=== PATIENT | female | born 1990 | race Caucasian/White ===

== ENCOUNTER 2022-05-28 07:37 | Inpatient (IN) ==
[2022-05-28] MEDS ORDERED: LIDOCAINE 1% LOCAL 20 ML VIAL INFIL PRN (08:21)
[2022-05-28] MEDS ORDERED: OXYTOCIN 30 UNITS/500 ML BAG IV PRN (08:21)
[2022-05-28] MEDS ORDERED: DINOPROSTONE 10 MG INSERT PV ONE (08:30)
--- NOTE | 2022-05-28 08:48 | History & Physical Report ---
Date of Service May 28, 2022 Assessment & Plan (1) Post-dates : Plan: 32-year-old G1, P0 at 40 weeks and 4 days of gestation presenting today for scheduled of inductions for postdates, heart rate reassuring, GBS positive, PCN Allergy Cervix unfavorable, Plan to admit, monitor, labs, cervical ripening with Cervidil, vancomycin for GBS, All questions were answered. (2) GBS (group B Streptococcus carrier), +RV culture, currently : (3) Hypothyroidism affecting : (4) Obesity affecting in third trimester, antepartum: Admission and Anticipated Discharge Date Admission Date: May 28, 2022 History of Present Illness Primary Care Provider: Lindsay Irby PA-C Patient is a 32-year-old G1, P0 at 40 weeks and 4 days of gestation who is presenting today for scheduled induction of labor for postdates. She has no complaints. She has been feeling irregular mild [place] contractions, denies any pain. She denies vaginal fluid, vaginal bleeding, headaches, change in her vision, nausea or vomiting. Her has been uncomplicated except, 1. Obesity during , 2. Hypothyroidism, Fadi thyroiditis, on levothyroxine daily, last TSH was done on March 09 and it was normal, 3. GBS positive, allergic to amoxicillin, penicillin, clindamycin, all caused diffuse rash, no itching, no shortness of breath Allergies Allergy/AdvReac Type Severity Reaction Status Date / Time amoxicillin Allergy Intermediate Rash Verified 05/28/22 07:50 clavulanic acid Allergy Intermediate Rash Verified 05/28/22 07:50 [From Augmentin] clindamycin Allergy Intermediate Rash Verified 05/28/22 07:50 Penicillins Allergy Intermediate Rash Verified 05/28/22 07:50 Home Medications Medication Instructions Recorded Confirmed Type levothyroxine 112 mcg tablet 125 mcg PO DAILY 05/05/19 05/28/22 History (Synthroid) prenat.vits,linda,[id number] 1 tab PO HS 05/28/22 05/28/22 History Patient History Surgical History [place] teeth removed Social History Smoking Status: Never smoker Hx Alcohol Use: No Hx Substance Use: No Preferred Language: Croatian Communication Ability: Effective 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 Beliefs That Will Affect Care: None marital status: Current Living Situation: Spouse Other Information That Helps Us Care for You: No Feels Safe at Home: Yes Safety Concerns: Feels Safe At This Time Assistive Devices: None OUTREACH LIAISON History Denies any history of STDs, denies history of herpes, chlamydia, gonorrhea Review of Systems as per Subjective / HPI Physical Exam Constitutional: WD/WN, vitals as above well developed, well nourished, + obese and comfortable Gastrointestinal (Abdomen): normal bowel sounds, soft, nontender, no hepatosplenomegaly (Gravid) Genitourinary: normal external appearance OB Exam Abdomen: + vertex Manual OB Exam: + cervical dilation 1 cm, + cervical effacement 20% and + station high (Posterior) OB Exam Monitor Tracing: + external uterine monitor used and + category I Results & Data ([facility]) Vital Signs (Past 12 Hours) Vital Signs Temp Pulse Resp BP 05/28/22 07:55 37.1 C 88 20 144/83 H
[2022-05-28 09:00] LABS: Hematocrit (blood only) 33.6 % (34.1-44.9); Hemoglobin 11.5 g/dl (12.0-16.0); Mean Corpuscular Hemoglobin 30.8 pg (25.0-34.0); Mean Corpuscular Hgb Conc 34.2 g/dL (32.0-36.0); Mean Corpuscular Volume 90.1 fL (80.0-100.0); Mean Platelet Volume 10.8 fL (9.4-12.3); Platelet Count 199 K/uL (130-400); RDW Coefficient of Variation 12.6 % (11.5-14.5); RDW Standard Deviation 41.4 fL (36.4-46.3); Red Blood Count 3.73 M/uL (3.93-5.22); White Blood Count 12.51 K/ul (4.8-10.8)
[2022-05-28] MEDS: LEVOTHYROXINE SODIUM 125 MCG TABLET PO SCH (09:08)
[2022-05-28] MEDS ORDERED: BUTORPHANOL TARTRATE 1 MG/ML VIAL IV PRN (09:27)
[2022-05-28 09:28] LABS: Alanine Aminotransferase 16 U/L (7-52); Albumin Globulin Ratio 1.2 (0.9-2); Albumin Level 3.4 gm/dl (3.4-5.0); Alkaline Phosphatase 107 U/L (34-104); Anion Gap 8 (3-11); Aspartate Aminotransferase 17 U/L (13-39); BUN Creatinine Ratio 21.3 (10-20); Bilirubin,Total 0.4 mg/dl (0.2-1.0); Blood Urea Nitrogen 10 mg/dl (6-23); Carbon Dioxide 22 mmol/L (21-32); Chloride 106 mmol/L (98-107); Creatinine Clr Calc Pharmacy 217.4 ml/min; Est GFR (African American) > 150.0 ml/min; Est GFR (Non-African American) 131.6 ml/min; Globulin 2.9 gm/dl (2.5-4.0); Glucose 83 mg/dl (70-99(Fasting)); Potassium 3.9 mmol/L (3.5-5.1); Sodium 136 mmol/L (136-145); Total Protein 6.3 gm/dl (6.0-8.3)
--- NOTE | 2022-05-28 09:31 | Obstetrical Progress Note ---
Date of Service May 28, 2022 Assessment & Plan Admission and Anticipated Discharge Date Admission Date: May 28, 2022 Subjective Bed side US is done to confirm vertex presentation Vertex, FHR 140's, multiple FM's seen, placenta ant-right lateral Patient desired to know EFW, 3700+ grams, understands the limitation of US Cervidil is placed in posterior fornix Discussed pain management, she has no plans All questions were answered. Results & Data ([facility]) Vital Signs (Past 12 Hours) Vital Signs Temp Pulse Resp BP 05/28/22 07:55 37.1 C 88 20 144/83 H
--- NOTE | 2022-05-28 15:46 | Obstetrical Progress Note ---
Date of Service May 28, 2022 Assessment & Plan Admission and Anticipated Discharge Date Admission Date: May 28, 2022 Subjective Patient is reevaluated. Feels well, has been watching TV. She feels mild uterine tightening, not painful. 07/20 No LOF/VB +FM's FHR categ I [place] ctxs q 2-4 min, does not feel all of them, palpates mild and short Discussed what to expect. Continue to monitor closely. Results & Data ([facility]) Vital Signs (Past 12 Hours) Vital Signs Temp Pulse Resp BP 05/28/22 15:10 78 134/80 05/28/22 11:22 36.7 C 70 20 137/75 05/28/22 07:55 37.1 C 88 20 144/83 H
[2022-05-28] MEDS ORDERED: VANCOMYCIN HCL 1,000 MG in SODIUM CHLORIDE 0.9% 250 ML IV PRN (19:21)
--- NOTE | 2022-05-28 21:52 | Obstetrical Progress Note ---
Date of Service May 28, 2022 Assessment & Plan Admission and Anticipated Discharge Date Admission Date: May 28, 2022 Subjective Patient is reevaluated. She started to be more painful since 7 pm or so. Pain is 4-5/10 but does not want pain meds VE; Cervidil is removed, Cervix is now anterior, 2 cm/ 40%/ -3, softer FHR categ I Discussed pain management, Stadol epidural in details She desires to walk for now and then decide for pain meds. All questions were answered. Results & Data ([facility]) Vital Signs (Past 12 Hours) Vital Signs Temp Pulse Resp BP 05/28/22 15:15 36.8 C 20 05/28/22 19:12 18 05/28/22 19:12 37.1 C 18 05/28/22 19:13 75 130/73 05/28/22 15:10 78 134/80 05/28/22 11:22 36.7 C 70 20 137/75
[2022-05-29] MEDS: PRENATAL VITAMIN 1 TAB PO SCH ×2 (01:47→22:18)
[2022-05-29] MEDS: miSOPROStoL 50 MCG TAB PO SCH ×3 (01:53→07:42)
[2022-05-29] MEDS: LEVOTHYROXINE SODIUM 125 MCG TABLET PO SCH (06:18)
[2022-05-29] MEDS ORDERED: OXYTOCIN 30 UNITS/500 ML BAG IV PRN (11:58)
[2022-05-29] MEDS ORDERED: Nursing to Pharmacy Communication SCH (12:15)
[2022-05-29] MEDS: LACTATED RINGER'S 1,000 ML IV PRN ×3 (12:27→22:56)
--- NOTE | 2022-05-29 16:25 | Labor Progress Brief Note ---
Date of Service May 29, 2022 Assessment & Plan (1) Post-dates : Plan: Met pt and reviewed car induction for prolonged gestation received Cytotec x3 and Cervidil On Pitocin FHr; CAT1 cts 2-4mins last exam was 2cm Admission and Anticipated Discharge Date Admission Date: May 28, 2022 Results & Data ([facility]) Vital Signs (Past 12 Hours) Vital Signs Temp Pulse Resp BP 05/29/22 12:42 20 05/29/22 07:15 36.5 C 20 05/29/22 16:00 67 129/64 05/29/22 14:57 74 123/72 05/29/22 14:07 71 130/68 05/29/22 13:14 74 128/71 05/29/22 12:35 78 130/81 05/29/22 11:31 36.8 C 71 20 120/72 05/29/22 07:25 73 128/74
[2022-05-29] MEDS ORDERED: ePHEDrine sulfate 50 MG/ML AMP ONE (18:27)
[2022-05-29] MEDS ORDERED: NALOXONE HCL 1 MG in SODIUM CHLORIDE 0.9% 1000ML 1,000 ML IV PRN (18:28)
[2022-05-29] MEDS ORDERED: BUPIVACAINE 0.25% 30 ML VIAL ONE ×2 (18:28→23:14)
[2022-05-29] MEDS ORDERED: LIDOCAINE 2%/EPINEPHRINE 1:200,000 20 ML SDV ONE (18:28)
[2022-05-29] MEDS ORDERED: fentaNYL 2MCG/ML ROPIVACAINE 1.25MG/ML 100 ML BAG EPI PRN (18:28)
[2022-05-29] MEDS ORDERED: SODIUM CHLORIDE 0.9% INJ 10 ML VIAL ONE ×2 (18:28→23:14)
[2022-05-29] MEDS ORDERED: NALBUPHINE HCL INJ 10 MG/ML AMP IV PRN (18:28)
[2022-05-29] MEDS ORDERED: ePHEDrine sulfate 50 MG/ML AMP IV PRN (18:28)
[2022-05-29] MEDS ORDERED: NALOXONE HCL 0.4 MG/1 ML VIAL/CARP IV PRN (18:28)
[2022-05-29] MEDS ORDERED: diphenhydrAMINE 50 MG/ML VIAL IV PRN (18:28)
[2022-05-29] MEDS ORDERED: fentaNYL citrate 100 MCG/2 ML VIAL ONE ×2 (18:28→23:13)
[2022-05-29] MEDS ORDERED: fentaNYL 2MCG/ML ROPIVACAINE 1.25MG/ML 100 ML BAG EPI ONE (18:29)
--- NOTE | 2022-05-29 18:35 | Anesthesiology Consultation ---
Date of Service May 29, 2022 Assessment & Plan (1) Encounter for pre-operative examination: Chart Review Chart Review: Patient NOT seen in Pre Admission Testing and Acceptable Risk for Labor Epidural Consults Requested none History Height/Weight Height: 5 ft 7 in Weight: 106.141 kg Allergies Allergy/AdvReac Type Severity Reaction Status Date / Time amoxicillin Allergy Intermediate Rash Verified 05/28/22 07:50 clavulanic acid Allergy Intermediate Rash Verified 05/28/22 07:50 [From Augmentin] clindamycin Allergy Intermediate Rash Verified 05/28/22 07:50 Penicillins Allergy Intermediate Rash Verified 05/28/22 07:50 Medications Home Medications Medication Instructions Recorded Confirmed Last Taken levothyroxine 112 mcg tablet 125 mcg PO DAILY 05/05/19 05/28/22 05/28/22 05:30 (Synthroid) prenat.vits,linda,[id number] 1 tab PO HS 05/28/22 05/28/22 05/27/22 Active Medications Generic Name Dose Route Start Last Admin Trade Name Freq PRN Reason Stop Dose Admin Vancomycin HCl 1,000 mg/ 270 mls @ 200 mls/hr 05/28/22 19:21 05/29/22 12:33 Sodium Chloride IV 06/07/22 19:20 200 mls/hr Q12H PRN Administration GBS(+) Until Delivery Lactated Ringer's 1,000 mls @ 150 mls/hr 05/28/22 08:21 05/29/22 12:27 Lr IV 05/30/22 08:20 150 mls/hr .Q6H40M PRN Administration L&D Protocol Protocol Oxytocin 30 units in 500 mls @ 14 mls/hr 05/29/22 11:58 05/29/22 16:00 Pitocin IV 05/31/22 11:57 0.84 units/hr .Q24H PRN 14 mls/hr Labor Induction/Augmentation Titration Protocol 0.84 UNITS/HR Levothyroxine Sodium 125 mcg 05/28/22 09:00 05/29/22 06:18 Levothyroxine Sodium 125 Mcg Tablet PO 06/27/22 08:59 125 mcg DAILYBB OWEN Administration Prenat Multivit/Art Manager/Iron/Folic Ac 1 tab 05/28/22 21:00 05/29/22 01:47 Vitamin 1 Tab PO 06/27/22 20:59 Not Given HS OWEN Past Surgical History Surgical History Nubieber teeth removed Social History Smoking Status: Never smoker Hx Alcohol Use: No Hx Substance Use: No Physical Exam Vital Signs Last Vital Signs Temp 98.2 F 05/29/22 14:57 Pulse 74 05/29/22 17:58 Resp 20 05/29/22 14:57 BP 125/60 05/29/22 17:58 Testing Laboratory Results 05/28/22 08:39 05/28/22 08:39 Blood Type A Negative 05/28/22 08:39 Antibody Screen NEGATIVE 05/28/22 08:39
--- NOTE | 2022-05-29 21:40 | Labor Progress Brief Note ---
Date of Service May 29, 2022 Assessment & Plan (1) Post-dates : Plan Pt doing well Induction day #2 Epidural analgesia Pit;14mu FHR; CAT1 Ctx; 1-3 VE /-2 AROM with amnio hook: clear Admission and Anticipated Discharge Date Admission Date: May 28, 2022 Results & Data ([facility]) Vital Signs (Past 12 Hours) Vital Signs Temp Pulse Resp BP Pulse Ox O2 Del Method 05/29/22 19:11 37.0 C 18 05/29/22 19:11 Room Air 05/29/22 14:57 36.8 C 20 05/29/22 12:42 20 05/29/22 21:32 37.2 C 87 99 05/29/22 21:27 80 97 05/29/22 21:22 77 98 05/29/22 21:17 76 98 05/29/22 21:14 73 129/69 05/29/22 21:12 86 98 05/29/22 21:07 79 98 05/29/22 21:02 76 98 05/29/22 20:58 75 97/57 L 05/29/22 20:57 76 97 05/29/22 20:52 74 97 05/29/22 20:47 77 98 05/29/22 20:44 72 110/59 L 05/29/22 20:42 76 98 05/29/22 20:37 75 99 05/29/22 20:30 18 05/29/22 20:30 18 05/29/22 20:32 73 98 05/29/22 20:29 75 109/58 L 05/29/22 20:27 77 99 05/29/22 20:22 70 98 05/29/22 20:17 65 97 05/29/22 20:13 74 126/78 05/29/22 20:12 66 98 05/29/22 20:00 18 05/29/22 20:00 18 05/29/22 20:07 70 99 05/29/22 20:02 75 98 05/29/22 19:57 70 97 05/29/22 19:58 69 121/66 05/29/22 19:52 73 98 05/29/22 19:47 79 97 05/29/22 19:45 73 120/66 05/29/22 19:42 73 97 05/29/22 19:10 18 05/29/22 19:10 37.0 C 18 05/29/22 19:37 72 97 05/29/22 19:32 72 98 05/29/22 19:30 70 18 126/71 05/29/22 19:27 73 99 05/29/22 19:22 79 98 05/29/22 19:17 75 98 05/29/22 19:12 75 97 05/29/22 19:13 75 125/74 05/29/22 19:11 71 113/72 05/29/22 19:09 86 109/61 05/29/22 19:07 97 05/29/22 19:07 74 05/29/22 19:07 76 103/55 L 05/29/22 19:05 81 114/64 05/29/22 19:03 74 110/58 L 05/29/22 19:02 70 96 05/29/22 19:01 70 107/59 L 05/29/22 18:59 68 113/59 L 05/29/22 18:57 71 118/63 98 05/29/22 18:55 66 20 123/72 05/29/22 18:52 76 98 05/29/22 18:53 69 126/71 05/29/22 18:51 75 120/73 05/29/22 18:47 87 99 05/29/22 18:42 75 99 05/29/22 18:41 67 141/86 H 05/29/22 17:58 74 125/60 05/29/22 17:06 76 136/82 05/29/22 16:00 67 129/64 05/29/22 14:57 74 123/72 05/29/22 14:07 71 130/68 05/29/22 13:14 74 128/71 05/29/22 12:35 78 130/81 05/29/22 11:31 36.8 C 71 20 120/72
[2022-05-29] MEDS ORDERED: NURSING L&D Epidural Breakthrough Pain Update ONE (22:23)
[2022-05-29] MEDS ORDERED: miSOPROStoL 200 MCG TAB ONE (23:29)
[2022-05-29] MEDS ORDERED: METHYLERGONOVINE MALEATE 0.2 MG/ML AMP ONE (23:29)
[2022-05-30] MEDS ORDERED: OXYTOCIN 30 UNITS/500 ML BAG IV PRN (00:12)
[2022-05-30] MEDS ORDERED: oxyCODONE/ACETAMINOPHEN 5mg/325mg TAB PO PRN (00:12)
[2022-05-30] MEDS ORDERED: miSOPROStoL 200 MCG TAB PR ONE (00:12)
[2022-05-30] MEDS ORDERED: BENZOCAINE 20% AER SPR 82.5 GM CAN EXT PRN (00:12)
[2022-05-30] MEDS ORDERED: DIPHTHERIA/TETANUS/PERTUSSIS 0.5 ML SYR/VIAL IM ONE (00:12)
[2022-05-30] MEDS ORDERED: METHYLERGONOVINE MALEATE 0.2 MG/ML AMP IM ONE (00:12)
[2022-05-30] MEDS ORDERED: HYDROCORTISONE ACETATE 25 MG SUPP PR PRN (00:12)
[2022-05-30] MEDS ORDERED: bisacodyL 10 MG SUPP PR PRN (00:12)
[2022-05-30] MEDS ORDERED: LACTATED RINGER'S 1,000 ML IV SCH (00:15)
[2022-05-30 00:32] LABS: Base Excess Cord Arterial Bld -2.4 mEq/L (-9-1.8); CO2 Cord Arterial Blood 57 mmHg (39.1-73.5); Cord Venous Blood HCO3 20 mmol/L (18.4-26.8); Cord Venous Blood PCO2 31 mmHg (30.4-57.2); Cord Venous Blood PO2 31 mmHg (14.1-43.3); Cord Venous Blood pH 7.41 (7.20-7.44); HCO3 Cord Arterial Blood 26 mmol/L (19.7-28.5); O2 Saturation Cord Venous Bld 67.2 % (<68); PO2 Cord Arterial Blood 17 mmHg (4.1-31.7); pH Cord Arterial Blood 7.26 (7.1-7.38)
[2022-05-30 00:33] LABS: Oxygen Sat Cord Arterial Blood < 60.0 % (<60)
[2022-05-30] MEDS: IBUPROFEN 600 MG TAB PO PRN ×4 (01:21→20:16)
--- NOTE | 2022-05-30 03:17 | Delivery Summary ---
DELIVERY NOTE: The patient delivered a live infant in left occiput anterior presentation with two nu chal cords, which were easily reduced. Cord was clamped and cut and handed over to the waiting pedia tric team after delayed cord clamping. Cord gases were obtained. Cord blood was obtained as well. Placenta was spontaneously delivered. Inspection of the placenta shows a normal looking placenta wit h 3-vessel cord. Inspection of the perineum showed a second-degree midline laceration, which was rep aired in layers with 3-0 and 2-0 Vicryl. Rectal exam post-repair shows good sphincter tone. No sutures are palpated in the rectum. All instruments were removed from the vagina and accounted for x2 including sponges, needles, and ret ractors. The patient is sent to recovery in stable condition. The patient's information including w eight and Apgars are on the pediatric record. Estimated blood loss was 450 mL. Job ID: [id number]
[2022-05-30] MEDS: ACETAMINOPHEN 325 MG TAB PO PRN ×4 (04:02→20:16)
--- NOTE | 2022-05-30 06:57 | Anesthesia Procedure Note ---
Date of Service May 30, 2022 Anesthesia Post Epidural Note Vital Signs Vital Signs: Temp Pulse Resp BP Pulse Ox O2 Del Method 97.3 F L 75 18 121/74 99 05/30/22 03:45 05/30/22 03:45 05/30/22 03:45 05/30/22 03:45 05/30/22 03:45 05/30/22 03:45 Pain Intensity Bilateral Abdomen: Pain Intensity: 7 Episiotomy/Laceration: Pain Intensity: 2 Notes Mental Status: alert / awake / arousable and participated in evaluation Nausea / Vomiting: adequately controlled Pain: adequately controlled Airway Patency, RR, SpO2: stable & adequate BP & HR: stable & adequate Hydration State: stable & adequate Neuraxial Anesthesia: was administered and sensory block is resolving Anesthetic Complications: no major complications apparent and Pt Satisfied with anesthetic care Epidural: Removed without complications and With tip intact
[2022-05-30] MEDS: DOCUSATE SODIUM 100 MG CAP PO SCH ×2 (07:28→20:16)
[2022-05-30] MEDS: LEVOTHYROXINE SODIUM 125 MCG TABLET PO SCH (07:28)
[2022-05-30] MEDS ORDERED: PRENATAL VITAMIN 1 TAB PO SCH (08:00)
--- NOTE | 2022-05-30 09:18 | Obstetrical Progress Note ---
Date of Service May 30, 2022 Assessment & Plan (1) Post-dates : (2) Normal course: Continue routine PP care Anticipate d/c PPD2 Subjective Ambulation: ambulating normally Voiding: no voiding problems Passing Gas:: Yes Diet Tolerance:: regular diet Lochia:: Moderate Feeding Type:: breast feeding Current Pain Level(1-10): 2 Doing well, no complaints at this time Physical Exam Constitutional WD/WN, vitals as above Respiratory normal respiratory effort, lungs clear to auscultation Cardiovascular RRR, no murmur, no edema Gastrointestinal (Abdomen) normal bowel sounds, soft, nontender, no hepatosplenomegaly Results & Data ([facility]) Vital Signs (Past 12 Hours) Vital Signs Temp Pulse Pulse Resp BP BP Pulse Ox 05/30/22 07:24 36.7 C 74 18 130/82 98 05/30/22 03:45 36.3 C L 75 18 121/74 99 05/30/22 02:25 37.0 C 18 05/30/22 01:35 18 05/30/22 01:05 18 05/30/22 00:50 73 18 145/72 H 05/30/22 00:20 18 05/30/22 00:35 72 18 147/70 H 05/30/22 00:05 18 05/30/22 02:13 76 143/88 H 05/30/22 01:58 81 137/84 05/30/22 01:28 67 136/82 05/30/22 01:13 62 136/82 05/30/22 00:58 73 145/72 H 05/30/22 00:43 72 147/70 H 05/30/22 00:28 75 159/74 H 05/30/22 00:25 76 153/71 H 05/30/22 00:07 86 132/61 05/30/22 00:02 82 99 05/29/22 23:58 88 139/65 05/29/22 23:57 87 98 05/29/22 23:52 90 98 05/29/22 23:00 20 05/29/22 23:00 20 05/29/22 23:47 90 99 05/29/22 23:44 87 160/74 H 05/29/22 23:42 87 98 05/29/22 23:37 93 H 97 05/29/22 23:38 86 108/76 05/29/22 23:32 90 98 20 23:29 86 123/83 05/29/22 23:27 93 H 98 05/29/22 23:25 100 H 86 L 05/29/22 23:22 121 H 97 05/29/22 23:18 93 H 84 L 05/29/22 23:17 94 H 98 05/29/22 23:14 81 158/82 H 05/29/22 23:12 78 99 05/29/22 23:07 98 H 100 05/29/22 23:02 78 99 05/29/22 22:59 80 130/102 H 05/29/22 22:57 88 99 05/29/22 22:52 79 100 05/29/22 22:47 69 99 05/29/22 22:30 18 05/29/22 22:30 18 05/29/22 22:42 78 99 05/29/22 22:37 85 99 05/29/22 22:32 79 100 05/29/22 22:29 77 125/67 93 05/29/22 22:27 77 100 05/29/22 22:22 67 99 05/29/22 22:17 99 05/29/22 22:17 71 05/29/22 22:17 81 91 05/29/22 22:14 76 127/71 05/29/22 22:12 70 98 05/29/22 22:07 68 99 05/29/22 22:02 69 100 05/29/22 21:30 20 05/29/22 21:30 20 05/29/22 22:00 71 20 158/98 H 05/29/22 21:57 70 100 22 21:52 67 97 05/29/22 21:51 79 94 2022 21:47 83 100 2022 21:45 68 128/71 2022 21:42 74 97 2022 21:37 77 98 05/29/22 21:32 37.2 C 87 99 05/29/22 21:27 80 97 05/29/22 21:22 77 98 05/29/22 21:17 76 98 O2 Del Method 05/30/22 07:24 Room Air 05/30/22 03:45 Room Air 05/30/22 02:25 05/30/22 01:35 05/30/22 01:05 05/30/22 00:50 05/30/22 00:20 05/30/22 00:35 05/30/22 00:05 05/30/22 02:13 05/30/22 01:58 05/30/22 01:28 05/30/22 01:13 05/30/22 00:58 05/30/22 00:43 05/30/22 00:28 05/30/22 00:25 05/30/22 00:07 05/30/22 00:02 05/29/22 23:58 05/29/22 23:57 05/29/22 23:52 05/29/22 23:00 05/29/22 23:00 05/29/22 23:47 05/29/22 23:44 05/29/22 23:42 05/29/22 23:37 05/29/22 23:38 05/29/22 23:32 05/29/22 23:29 05/29/22 23:27 05/29/22 23:25 05/29/22 23:22 05/29/22 23:18 05/29/22 23:17 05/29/22 23:14 05/29/22 23:12 05/29/22 23:07 05/29/22 23:02 05/29/22 22:59 05/29/22 22:57 05/29/22 22:52 05/29/22 22:47 05/29/22 22:30 05/29/22 22:30 05/29/22 22:42 05/29/22 22:37 05/29/22 22:32 05/29/22 22:29 05/29/22 22:27 05/29/22 22:22 05/29/22 22:17 05/29/22 22:17 05/29/22 22:17 05/29/22 22:14 05/29/22 22:12 05/29/22 22:07 05/29/22 22:02 05/29/22 21:30 05/29/22 21:30 05/29/22 22:00 05/29/22 21:57 05/29/22 21:52 05/29/22 21:51 05/29/22 21:47 05/29/22 21:45 05/29/22 21:42 05/29/22 21:37 05/29/22 21:32 05/29/22 21:27 05/29/22 21:22 05/29/22 21:17
[2022-05-30] MEDS: PRENATAL VITAMIN 1 TAB PO SCH (20:16)
[2022-05-31] MEDS: ACETAMINOPHEN 325 MG TAB PO PRN ×2 (03:46→12:00)
[2022-05-31] MEDS: IBUPROFEN 600 MG TAB PO PRN ×2 (03:46→07:54)
[2022-05-31] MEDS: LEVOTHYROXINE SODIUM 125 MCG TABLET PO SCH (06:21)
[2022-05-31 06:59] LABS: Hematocrit (blood only) 28.5 % (34.1-44.9); Hemoglobin 9.9 g/dl (12.0-16.0); Mean Corpuscular Hemoglobin 31.2 pg (25.0-34.0); Mean Corpuscular Hgb Conc 34.7 g/dL (32.0-36.0); Mean Corpuscular Volume 89.9 fL (80.0-100.0); Mean Platelet Volume 10.5 fL (9.4-12.3); Platelet Count 174 K/uL (130-400); RDW Standard Deviation 42.8 fL (36.4-46.3); Red Blood Count 3.17 M/uL (3.93-5.22); White Blood Count 13.35 K/ul (4.8-10.8)
[2022-05-31] MEDS: DOCUSATE SODIUM 100 MG CAP PO SCH (07:58)
--- NOTE | 2022-05-31 10:07 | Obstetrical Progress Note ---
Date of Service May 31, 2022 Assessment & Plan Admission and Anticipated Discharge Date Admission Date: May 28, 2022 Subjective Patient is seen and examined. She feels well, no complaints. Ambulating without dizziness Voiding without difficulty Tolerating regular diet with out N&V Bleeding is minimal No fever/ chills/ CP/ SOB/ N&V/ Leg pain Breast feeding without problems Vital Signs Temp Pulse Pulse Resp BP BP Pulse Ox 05/31/22 08:21 36.9 C 71 16 143/83 H 97 05/30/22 23:28 36.7 C 70 18 125/74 99 05/30/22 20:20 05/30/22 19:34 36.4 C L 86 18 127/84 97 05/30/22 15:49 36.9 C 71 18 136/84 98 05/30/22 13:07 36.7 C 76 16 119/73 97 05/30/22 12:00 36.7 C 74 16 119/73 97 O2 Del Method 05/31/22 08:21 Room Air 05/30/22 23:28 Room Air 05/30/22 20:20 Room Air 05/30/22 19:34 Room Air 05/30/22 15:49 Room Air 05/30/22 13:07 05/30/22 12:00 Room Air Lab Results 05/28/22 05/28/22 05/28/22 Range/Units 08:39 08:39 08:39 WBC 12.51 H (4.8-10.8) K/ul RBC 3.73 L (3.93-5.22) M/uL Hgb 11.5 L (12.0-16.0) g/dl Hct 33.6 L (34.1-44.9) % MCV 90.1 (80.0-100.0) fL MCH 30.8 (25.0-34.0) pg MCHC 34.2 (32.0-36.0) g/dL RDW Std Deviation 41.4 (36.4-46.3) fL RDW Coeff of Lyndsay 12.6 (11.5-14.5) % Plt Count 199 (130-400) K/uL MPV 10.8 (9.4-12.3) fL Cord ABG pH (7.1-7.38) Cord ABG pCO2 (39.1-73.5) mmHg Cord ABG pO2 (4.1-31.7) mmHg Cord ABG HCO3 (19.7-28.5) mmol/L Cord ABG Base Excess (-9-1.8) mEq/L Cord ABG O2 Sat (<60) % Cord VBG pH (7.20-7.44) Cord VBG pCO2 (30.4-57.2) mmHg Cord VBG pO2 (14.1-43.3) mmHg Cord VBG HCO3 (18.4-26.8) mmol/L Cord VBG Base Excess (-7.7-1.9) mEq/L Cord VBG O2 Sat (<68) % Blood Gas Comments Sodium 136 (136-145) mmol/L Potassium 3.9 (3.5-5.1) mmol/L Chloride 106 (98-107) mmol/L Carbon Dioxide 22 (21-32) mmol/L Anion Gap 8 (3-11) BUN 10 (6-23) mg/dl Creatinine 0.47 L (0.6-1.2) mg/dl Est Cr Clr Drug Dosing 217.4 ml/min Est GFR ( Amer) > 150.0 ml/min Est GFR (Non-Af Amer) 131.6 ml/min BUN/Creatinine Ratio 21.3 H (10-20) Glucose 83 (70-99(Fasting)) mg/dl Calcium 9.0 (8.5-10.1) mg/dl Total Bilirubin 0.4 (0.2-1.0) mg/dl AST 17 (13-39) U/L ALT 16 (7-52) U/L Alkaline Phosphatase 107 H (34-104) U/L Total Protein 6.3 (6.0-8.3) gm/dl Albumin 3.4 (3.4-5.0) gm/dl Globulin 2.9 (2.5-4.0) gm/dl Albumin/Globulin Ratio 1.2 (0.9-2) TSH (0.300-4.500) uIu/ml SARS-CoV-2, RNA, NAAT (NEGATIVE) Blood Type A Negative Antibody Screen NEGATIVE Screen (Negative) 05/28/22 05/28/22 05/29/22 Range/Units 08:39 Unknown 23:25 WBC (4.8-10.8) K/ul RBC (3.93-5.22) M/uL Hgb (12.0-16.0) g/dl Hct (34.1-44.9) % MCV (80.0-100.0) fL MCH (25.0-34.0) pg MCHC (32.0-36.0) g/dL RDW Std Deviation (36.4-46.3) fL RDW Coeff of Lyndsay (11.5-14.5) % Plt Count (130-400) K/uL MPV (9.4-12.3) fL Cord ABG pH (7.1-7.38) Cord ABG pCO2 (39.1-73.5) mmHg Cord ABG pO2 (4.1-31.7) mmHg Cord ABG HCO3 (19.7-28.5) mmol/L Cord ABG Base Excess (-9-1.8) mEq/L Cord ABG O2 Sat (<60) % Cord VBG pH 7.41 (7.20-7.44) Cord VBG pCO2 31 (30.4-57.2) mmHg Cord VBG pO2 31 (14.1-43.3) mmHg Cord VBG HCO3 20 (18.4-26.8) mmol/L Cord VBG Base Excess -4.0 (-7.7-1.9) mEq/L Cord VBG O2 Sat 67.2 (<68) % Blood Gas Comments [place] Sodium (136-145) mmol/L Potassium (3.5-5.1) mmol/L Chloride (98-107) mmol/L Carbon Dioxide (21-32) mmol/L Anion Gap (3-11) BUN (6-23) mg/dl Creatinine (0.6-1.2) mg/dl Est Cr Clr Drug Dosing ml/min Est GFR ( Amer) ml/min Est GFR (Non-Af Amer) ml/min BUN/Creatinine Ratio (10-20) Glucose (70-99(Fasting)) mg/dl Calcium (8.5-10.1) mg/dl Total Bilirubin (0.2-1.0) mg/dl AST (13-39) U/L ALT (7-52) U/L Alkaline Phosphatase (34-104) U/L Total Protein (6.0-8.3) gm/dl Albumin (3.4-5.0) gm/dl Globulin (2.5-4.0) gm/dl Albumin/Globulin Ratio (0.9-2) TSH 4.060 (0.300-4.500) uIu/ml SARS-CoV-2, RNA, NAAT NEGATIVE (NEGATIVE) Blood Type Antibody Screen Screen (Negative) 05/29/22 05/30/22 05/31/22 Range/Units 23:25 09:26 06:32 WBC 13.35 H (4.8-10.8) K/ul RBC 3.17 L (3.93-5.22) M/uL Hgb 9.9 L (12.0-16.0) g/dl Hct 28.5 L (34.1-44.9) % MCV 89.9 (80.0-100.0) fL MCH 31.2 (25.0-34.0) pg MCHC 34.7 (32.0-36.0) g/dL RDW Std Deviation 42.8 (36.4-46.3) fL RDW Coeff of Lyndsay 13.0 (11.5-14.5) % Plt Count 174 (130-400) K/uL MPV 10.5 (9.4-12.3) fL Cord ABG pH 7.26 (7.1-7.38) Cord ABG pCO2 57 (39.1-73.5) mmHg Cord ABG pO2 17 (4.1-31.7) mmHg Cord ABG HCO3 26 (19.7-28.5) mmol/L Cord ABG Base Excess -2.4 (-9-1.8) mEq/L Cord ABG O2 Sat < 60.0 (<60) % Cord VBG pH (7.20-7.44) Cord VBG pCO2 (30.4-57.2) mmHg Cord VBG pO2 (14.1-43.3) mmHg Cord VBG HCO3 (18.4-26.8) mmol/L Cord VBG Base Excess (-7.7-1.9) mEq/L Cord VBG O2 Sat (<68) % Blood Gas Comments [place] Sodium (136-145) mmol/L Potassium (3.5-5.1) mmol/L Chloride (98-107) mmol/L Carbon Dioxide (21-32) mmol/L Anion Gap (3-11) BUN (6-23) mg/dl Creatinine (0.6-1.2) mg/dl Est Cr Clr Drug Dosing ml/min Est GFR ( Amer) ml/min Est GFR (Non-Af Amer) ml/min BUN/Creatinine Ratio (10-20) Glucose (70-99(Fasting)) mg/dl Calcium (8.5-10.1) mg/dl Total Bilirubin (0.2-1.0) mg/dl AST (13-39) U/L ALT (7-52) U/L Alkaline Phosphatase (34-104) U/L Total Protein (6.0-8.3) gm/dl Albumin (3.4-5.0) gm/dl Globulin (2.5-4.0) gm/dl Albumin/Globulin Ratio (0.9-2) TSH (0.300-4.500) uIu/ml SARS-CoV-2, RNA, NAAT (NEGATIVE) Blood Type A Negative Antibody Screen Cancelled Screen Negative (Negative) PE: General: Alert, orientedx3, NAD Abd: soft, NT, fundus firm, below Umbilicus Perineum intact, Lochia rubra minimal Ext; NT, no edema AP: 32 yo s/p , ppd# 2 VSS Afebrile doing well Continue routine care All questions were answered D/C home , f/u in office Results & Data ([facility]) Vital Signs (Past 12 Hours) Vital Signs Temp Pulse Resp BP Pulse Ox O2 Del Method 05/31/22 08:21 36.9 C 71 16 143/83 H 97 Room Air 05/30/22 23:28 36.7 C 70 18 125/74 99 Room Air
[2022-05-31] MEDS ORDERED: bisacodyL 5 MG TABEC PO SCH (20:00)
== END 2022-05-31 13:30 | disposition home or self-care (01) | DRG 807 ==
LOC: 4S1 07:37 → 4E2 05-30 02:40